=== PATIENT | male | born 1975 | race Caucasian/White ===

== ENCOUNTER 2017-04-07 15:58 | Observation (INO) | payer OTHER ==
[~2017-04-07 15:58] MED LIST: MET5 PO; METH18TA12 PO
[2017-04-07] MEDS ORDERED: [UNRECOGNIZED DRUG - CODE] (16:17)
[2017-04-07] MEDS ORDERED: VALA500T63 PO (16:18)
[2017-04-07] MEDS ORDERED: NS(*) 0.9% 1000 ML BAG 1,000 ML IV ONE (16:26)
[2017-04-07] MEDS ORDERED: fentaNYL CITR 100 MCG/2 ML AMP IVP ONE ×2 (16:30→21:15)
[2017-04-07] MEDS ORDERED: KETOROLAC 30 MG/ML VIAL IVP ONE (16:30)
[2017-04-07] MEDS ORDERED: ONDANSETRON 4 MG/2 ML VIAL IVP ONE (16:30)
--- NOTE | 2017-04-07 16:32 | ER Report ---
History and Physical Time Seen By MD: 16:30 Hx. of Stated Complaint: PAIN IN L SIDE LOW BACK RADIATING TO FRONT HPI/ROS 41-year-old male with left CVA tenderness 24 hours states no history of kidney stones noticed his urine is been darker that he is doing at home has been helping the pain has been nauseated with the pain Allergies: Coded Allergies: morphine (Verified Allergy, Mild, 04/07/17) Home Meds Reported Medications Valacyclovir Hcl (VALACYCLOVIR) 500 Mg Tablet, 500 MG PO 04/07/17 Alemtuzumab (Lemtrada) 12 Mg/1.2 Ml Vial 04/07/17 Discontinued Reported Medications Methylphenidate Hcl (Concerta) 18 Mg/Bottle Tab.osm.24, 18 MG PO, 0 Refills 01/25/11 Methylphenidate Hcl (Ritalin) 5 Mg Tab, 5 MG PO TID, 0 Refills 01/25/11 Past Medical/Surgical History adhd, ms Reviewed Nurses Notes: Yes Old Medical Records Reviewed: Yes Hx Smoking: No Exposure to Second Hand Smoke?: No Hx Substance Use Disorder: No Hx Alcohol Use: No Family History of: HTN Constitutional Vital Sign - Last 24 Hours 04/07/17 04/07/17 04/07/17 04/07/17 16:13 16:28 16:43 16:58 Temp 97.8 Pulse 80 ??? 73 79 Resp 18 B/P (MAP) 122/90 137/85 (102) Pulse Ox 93 96 89 04/07/17 04/07/17 04/07/17 04/07/17 17:07 17:13 17:28 17:30 Pulse ??? 80 B/P (MAP) 133/86 (102) 131/82 (98) Pulse Ox 92 95 04/07/17 04/07/17 04/07/17 04/07/17 17:43 17:48 18:00 18:03 Pulse 78 83 77 B/P (MAP) ???/??? (4605) Pulse Ox 94 95 93 04/07/17 04/07/17 04/07/17 04/07/17 18:18 18:30 18:33 18:48 Pulse 83 84 86 B/P (MAP) ???/??? (6825) Pulse Ox 92 93 93 04/07/17 04/07/17 04/07/1719/18 19:00 19:03 19:17 19:18 Pulse 81 71 B/P (MAP) ???/??? (0485) 126/84 (98) Pulse Ox 92 95 04/07/17 19:19 B/P (MAP) 130/80 (97) Physical Exam 41-year-old male alert and oriented moderate distress HEENT has normocephalic/ atraumatic tympanic membranes are reddened throat is non-reddened neck is supple and JVD heart rate is regular no murmurs or gallops lungs clear to auscultation abdomen is soft he does have left CVA tenderness to palpation rates the pain as 7 on a 0-10 no peripheral edema moves all extremities Medical Decision Making Data Points Result Diagram: 04/07/17 1647 04/07/17 1647 Laboratory Hematology Test 04/07/17 16:47 04/07/17 18:00 04/07/17 20:09 Red Blood Count 5.88 M/uL (4.00-5.60) Mean Corpuscular Volume 87.8 fL (80.0-96.0) Mean Corpuscular Hemoglobin 30.2 pg (26.0-33.0) Mean Corpuscular Hemoglobin Concent 34.4 g/dL (32.0-36.0) Red Cell Distribution Width 13.9 % (11.5-14.5) Mean Platelet Volume 7.4 fL (7.2-11.1) Neutrophils (%) (Auto) 93.5 % (39.4-72.5) Lymphocytes (%) (Auto) 1.9 % (17.6-49.6) Monocytes (%) (Auto) 4.4 % (4.1-12.4) Eosinophils (%) (Auto) 0.1 % (0.4-6.7) Basophils (%) (Auto) 0.1 % (0.3-1.4) Nucleated RBC Relative Count (auto) 0.3 /100WBC Neutrophils # (Auto) 16.3 K/uL (2.0-7.4) Lymphocytes # (Auto) 0.3 K/uL (1.3-3.6) Monocytes # (Auto) 0.8 K/uL (0.3-1.0) Eosinophils # (Auto) 0.0 K/uL (0.0-0.5) Basophils # (Auto) 0.0 K/uL (0.0-0.1) Nucleated RBC Absolute Count (auto) 0.05 K/uL Sodium Level 138 mmol/L (137-145) Potassium Level 3.9 mmol/L (3.5-5.0) Chloride Level 102 mmol/L (98-107) Carbon Dioxide Level 24 mmol/L (22-30) Blood Urea Nitrogen 10 mg/dl (9-21) Creatinine 0.90 mg/dl (0.66-1.25) Glomerular Filtration Rate Calc > 60.0 Random Glucose 120 mg/dl (75-110) Lactate 2.4 mmol/L (0.7-2.1) Calcium Level 9.5 mg/dl (8.4-10.2) Total Bilirubin 1.0 mg/dl (0.2-1.3) Aspartate Amino Transf (AST/SGOT) 27 U/L (0-35) Alanine Aminotransferase (ALT/SGPT) 52 U/L (0-56) Alkaline Phosphatase 75 U/L (0-126) Total Protein 7.4 gm/dl (6.3-8.2) Albumin 4.5 g/dl (3.5-5.0) Amylase Level 94 U/L (0-110) Lipase 45 U/L (23-300) Urine Color Yellow Urine Clarity Clear Urine pH 5.0 pH (4.8-9.5) Urine Specific Ramah 1.016 Urine Protein Negative mg/dL (NEGATIVE) Urine Glucose (UA) Negative mg/dL (NEGATIVE) Urine Ketones Trace mg/dL (NEGATIVE) Urine Blood Negative (NEGATIVE) Urine Nitrite Negative (NEGATIVE) Urine Bilirubin Negative (NEGATIVE) Urine Urobilinogen Negative mg/dL (0.2-1.9) Urine Leukocyte Esterase Negative (NEGATIVE) Urine RBC <1 /HPF (0-2/HPF) Urine WBC 1 /HPF (0-5/HPF) Urine Squamous Epithelial Cells None /LPF (</=FEW) Urine Bacteria Negative /HPF (NONE-FEW) Urine Mucus Few /HPF (NONE-FEW) Troponin I < 0.012 ng/ml Chemistry Test 04/07/17 16:47 04/07/17 18:00 04/07/17 20:09 White Blood Count 17.4 k/uL (4.5-11.0) Red Blood Count 5.88 M/uL (4.00-5.60) Hemoglobin 17.7 g/dL (14.0-18.0) Hematocrit 51.7 % (42.0-52.0) Mean Corpuscular Volume 87.8 fL (80.0-96.0) Mean Corpuscular Hemoglobin 30.2 pg (26.0-33.0) Mean Corpuscular Hemoglobin Concent 34.4 g/dL (32.0-36.0) Red Cell Distribution Width 13.9 % (11.5-14.5) Platelet Count 434 K/uL (150-450) Mean Platelet Volume 7.4 fL (7.2-11.1) Neutrophils (%) (Auto) 93.5 % (39.4-72.5) Lymphocytes (%) (Auto) 1.9 % (17.6-49.6) Monocytes (%) (Auto) 4.4 % (4.1-12.4) Eosinophils (%) (Auto) 0.1 % (0.4-6.7) Basophils (%) (Auto) 0.1 % (0.3-1.4) Nucleated RBC Relative Count (auto) 0.3 /100WBC Neutrophils # (Auto) 16.3 K/uL (2.0-7.4) Lymphocytes # (Auto) 0.3 K/uL (1.3-3.6) Monocytes # (Auto) 0.8 K/uL (0.3-1.0) Eosinophils # (Auto) 0.0 K/uL (0.0-0.5) Basophils # (Auto) 0.0 K/uL (0.0-0.1) Nucleated RBC Absolute Count (auto) 0.05 K/uL Glomerular Filtration Rate Calc > 60.0 Lactate 2.4 mmol/L (0.7-2.1) Calcium Level 9.5 mg/dl (8.4-10.2) Total Bilirubin 1.0 mg/dl (0.2-1.3) Aspartate Amino Transf (AST/SGOT) 27 U/L (0-35) Alanine Aminotransferase (ALT/SGPT) 52 U/L (0-56) Alkaline Phosphatase 75 U/L (0-126) Total Protein 7.4 gm/dl (6.3-8.2) Albumin 4.5 g/dl (3.5-5.0) Amylase Level 94 U/L (0-110) Lipase 45 U/L (23-300) Urine Color Yellow Urine Clarity Clear Urine pH 5.0 pH (4.8-9.5) Urine Specific Ramah 1.016 Urine Protein Negative mg/dL (NEGATIVE) Urine Glucose (UA) Negative mg/dL (NEGATIVE) Urine Ketones Trace mg/dL (NEGATIVE) Urine Blood Negative (NEGATIVE) Urine Nitrite Negative (NEGATIVE) Urine Bilirubin Negative (NEGATIVE) Urine Urobilinogen Negative mg/dL (0.2-1.9) Urine Leukocyte Esterase Negative (NEGATIVE) Urine RBC <1 /HPF (0-2/HPF) Urine WBC 1 /HPF (0-5/HPF) Urine Squamous Epithelial Cells None /LPF (</=FEW) Urine Bacteria Negative /HPF (NONE-FEW) Urine Mucus Few /HPF (NONE-FEW) Troponin I < 0.012 ng/ml Urinalysis Test 04/07/17 18:00 Urine Color Yellow Urine Clarity Clear Urine pH 5.0 pH (4.8-9.5) Urine Specific Ramah 1.016 Urine Protein Negative mg/dL (NEGATIVE) Urine Glucose (UA) Negative mg/dL (NEGATIVE) Urine Ketones Trace mg/dL (NEGATIVE) Urine Blood Negative (NEGATIVE) Urine Nitrite Negative (NEGATIVE) Urine Bilirubin Negative (NEGATIVE) Urine Urobilinogen Negative mg/dL (0.2-1.9) Urine Leukocyte Esterase Negative (NEGATIVE) Urine RBC <1 /HPF (0-2/HPF) Urine WBC 1 /HPF (0-5/HPF) Urine Squamous Epithelial Cells None /LPF (</=FEW) Urine Bacteria Negative /HPF (NONE-FEW) Urine Mucus Few /HPF (NONE-FEW) EKG/Imaging EKG Interpretation EKG at 2033 poor baseline EKG is normal sinus ventricular rate 86 QTCs for 37 Monitor Interpretation: Normal Sinus Rhythm Imaging FACILITY: [facility] [place] PATIENT NAME: Carlos Benitez : 1975 MR: [id number] V: [id number] EXAM DATE: ORDERING PHYSICIAN: SOPHIE HUNT TECHNOLOGIST: Location: [facility] Patient: Carlos Benitez : 1975 Visit/Account:[id number] Date of Sevice: 04/07/2017 CT abdomen with IV contrast Indication: Adrenal gland changes. Comparison: Noncontrast CT scan of the abdomen and pelvis done earlier in the day.. Technique: Axial CT images were obtained through the abdomen and pelvis during injection of nonionic iodinated intravenous contrast. Reformatted coronal and sagittal images were also obtained. One of the following dose optimization techniques was utilized in the performance of this exam: Automated exposure control; adjustment of the mA and/ or kV according to the patient's size; or use of an iterative reconstruction technique. Specific details can be referenced in the facility's radiology CT exam operational policy. Contrast: 75 ml of Isovue-370 IV contrast. Findings: Lower lung vasquez: Limited views lower lung field are unremarkable. Liver: No focal parenchymal abnormality of the liver. Biliary: Gallbladder appears unremarkable as well as the intra and extra hepatic biliary system. Pancreas: Normal appearance. Spleen: Normal appearance. Adrenal glands: Left adrenal gland again is mildly thickened with mild surrounding inflammatory changes. There is no discrete adrenal gland mass. Or fluid collection. No acute blood proximal identified. There is mild enhancement of the lesions, medial greater than lateral. The appearance is not significantly changed from the previous exam. The right adrenal gland is normal. Kidneys / retroperitoneum: No evidence of nephrolithiasis or hydronephrosis . No focal abnormality. Bowel / peritoneum / mesenteries: Visualized gastrointestinal tract is within normal limits. No free air, free fluid, fluid collections or areas of inflammation. Lymph node assessment: No pathologic adenopathy identified. Vessels: No significant atherosclerotic calcifications seen throughout a nonaneurysmal abdominal aorta and branches. Musculoskeletal / Body wall: No acute or aggressive osseous abnormality. IMPRESSION: 1. Stable appearance to the left adrenal gland with mild hyperemic changes and surrounding inflammatory changes. This most likely due to an acute/subacute insult. No acute hemorrhage or blood products is identified. No adrenal gland mass. Report Dictated By: Jean Paul Montoya at 04/07/2017 8:28 PM Report E-Signed By: Jean Paul Montoya at 04/07/2017 8:36 PM WSN:[id number] ED Course/Re-evaluation Clinical Indication for ER IV: Hydration ED Course Have discussed the patient with Dr. Alvarado surgeon he M asked for additional imaging to be done at did contact radiologist on-call he asked for a CT abdomen with IV contrast it will be done at this point Re-evaluation Has had fentanyl twice in the emergency room for flank pain [place] did talk to Dr. Alvarado on the 2nd CT he asked for the hospitalist to be involved in to admit the patient talk to Noah Palomino and he agrees to admit this patient from 2nd CT is showing mild hyperemic changes and surrounding inflammatory changes most likely due to an acute or subacute insult I'm I did talk to patient M no that we have a lot of pending lab work expect to have IV fluids and pain medication overnight and have lab work repeated in the morning Decision to Disposition Date: Apr 07, 2017 Decision to Disposition Time: 21:25 Depart Departure Latest Vital Signs Vital Signs Date Time Temp Pulse Resp B/P (MAP) Pulse Ox O2 Delivery O2 Flow Rate FiO2 04/07/17 19:19 130/80 (97) 04/07/17 19:18 71 95 04/07/17 16:13 97.8 18 Impression: Primary Impression: Adrenal infarction Additional Impression: Leucocytosis Condition: Improved Disposition: Admitted from ER Referrals: DIONTE DIXON MD (PCP) Problem Qualifiers SOPHIE HUNT Apr 07, 2017 16:32
[2017-04-07 16:55] LABS: PLATELET COUNT, AUTOMATED 434 K/uL (150-450)
--- NOTE | 2017-04-07 18:14 | RADIOLOGY IMAGING REPORT ---
FACILITY: [facility] - [place] PATIENT NAME: Carlos Benitez : 1975 MR: [id number] V: [id number] EXAM DATE: ORDERING PHYSICIAN: SOPHIE HUNT TECHNOLOGIST: Location: [facility] Patient: Carlos Benitez : 1975 Visit/Account:[id number] Date of Sevice: 04/07/2017 ADDENDUM #1 The left adrenal gland was discussed with the hospitalist in [place] on 04/09/2017 at approximately 2: 45 PM. While the cause of the stranding around the left adrenal is not definitive, the findings most likely represent hemorrhage. Blunt trauma would be the most common differential consideration. Other potential causes would be hemorrhage after infarct, unilateral neoplastic lesion (though no mass is c onspicuous), long-term nonsteroidal anti-inflammatory use, neurofibromatosis type I, or idiopathic. F ollow-up CT in one to 2 weeks was recommended to confirm resolution and to reevaluate. Report Dictated By: Angie Lazaro MD at 04/09/2017 2:45 PM Report E-Signed By: Angie Lazaro MD at 04/09/2017 2:49 PM ORIGINAL REPORT COMPUTED TOMOGRAPHY OF THE Abdomen and Pelvis without CONTRAST INDICATION: Flank pain. TECHNIQUE: Contiguous axial 3.[address] images were obtained through the abdomen and pelvis without co ntrast. Coronal and sagittal reformatted images were submitted. COMPARISON: None. FINDINGS: Lung bases: Trace atelectasis. Liver and hepatic vasculature: Limited parenchymal evaluation without contrast. Gallbladder and bile ducts: Normal. Spleen: Normal. Pancreas: Normal pancreas. Adrenals: The right adrenal is normal. There is moderate stranding circumscribing the left adrenal. No discrete fluid collection. Kidneys, ureters and bladder: Normal. Retroperitoneum and aorta: Normal caliber aorta. Small retroperitoneal lymph nodes. GI tract, mesentery and peritoneum: No bowel obstruction. No free fluid or free air. There is an appe ndicolith, but the appendix is nondilated. There are a few colonic diverticula but no findings of div erticulitis. Prostate: Unremarkable. Bones and soft tissues: No acute osseous abnormality. IMPRESSION: Stranding surrounding the left adrenal gland could potentially reflect adrenal hemorrhage. There is n o apparent mass or discrete fluid collection. Diverticulosis without findings of diverticulitis. There is an appendicolith, but the appendix is gas-filled and nondistended. One of the following dose optimization techniques was utilized in the performance of this exam: Autom ated exposure control; adjustment of the mA and/or kV according to the patient's size; or use of an i terative reconstruction technique. Specific details can be referenced in the facility's radiology C T exam operational policy. Report Dictated By: Angie Lazaro MD at 04/07/2017 5:37 PM Report E-Signed By: Angie Lazaro MD at 04/07/2017 6:10 PM WSN:[id number]
[2017-04-07] MEDS ORDERED: NS 0.9% 50 ML VIAL 50 ML ONE (19:57)
[2017-04-07] MEDS ORDERED: IOPAMIDOL 76% 75 ML INFUS BTL 75 ML ONE (19:57)
--- NOTE | 2017-04-07 20:40 | EKG ---
FACILITY: [facility] [place] PATIENT NAME: DANIELLA LOVELACE : [id number] MR: [id number] V: [id number] EXAM DATE: ORDERING PHYSICIAN: SOPHIE HUNT TECHNOLOGIST: Test Reason : Blood Pressure : / mmHG Vent. Rate : 086 BPM Atrial Rate : 086 BPM P-R Int : 114 ms QRS Dur : 078 ms QT Int : 366 ms P-R-T Axes : 038 040 041 degrees QTc Int : 437 ms Sinus rhythm No acute appearing findings Baseline artifact No previous ECGs available Confirmed by KIMBERLY ERIC ([id number]) on 04/08/2017 6:01:58 AM Referred By: Confirmed By:KIMBERLY ERIC
--- NOTE | 2017-04-07 20:40 | RADIOLOGY IMAGING REPORT ---
FACILITY: [facility] [place] PATIENT NAME: Carlos Benitez : 1975 MR: [id number] V: [id number] EXAM DATE: ORDERING PHYSICIAN: SOPHIE HUNT TECHNOLOGIST: Location: [facility] Patient: Carlos Benitez : 1975 Visit/Account:[id number] Date of Sevice: 04/07/2017 CT abdomen with IV contrast Indication: Adrenal gland changes. Comparison: Noncontrast CT scan of the abdomen and pelvis done earlier in the day.. Technique: Axial CT images were obtained through the abdomen and pelvis during injection of nonioni c iodinated intravenous contrast. Reformatted coronal and sagittal images were also obtained. One of the following dose optimization techniques was utilized in the performance of this exam: Autom ated exposure control; adjustment of the mA and/or kV according to the patient's size; or use of an i terative reconstruction technique. Specific details can be referenced in the facility's radiology C T exam operational policy. Contrast: 75 ml of Isovue-370 IV contrast. Findings: Lower lung vasquez: Limited views lower lung field are unremarkable. Liver: No focal parenchymal abnormality of the liver. Biliary: Gallbladder appears unremarkable as well as the intra and extra hepatic biliary system. Pancreas: Normal appearance. Spleen: Normal appearance. Adrenal glands: Left adrenal gland again is mildly thickened with mild surrounding inflammatory leon es. There is no discrete adrenal gland mass. Or fluid collection. No acute blood proximal identified. There is mild enhancement of the lesions, medial greater than lateral. The appearance is not signifi cantly changed from the previous exam. The right adrenal gland is normal. Kidneys / retroperitoneum: No evidence of nephrolithiasis or hydronephrosis . No focal abnormality. Bowel / peritoneum / mesenteries: Visualized gastrointestinal tract is within normal limits. No free air, free fluid, fluid collections or areas of inflammation. Lymph node assessment: No pathologic adenopathy identified. Vessels: No significant atherosclerotic calcifications seen throughout a nonaneurysmal abdominal aort a and branches. Musculoskeletal / Body wall: No acute or aggressive osseous abnormality. IMPRESSION: 1. Stable appearance to the left adrenal gland with mild hyperemic changes and surrounding inflammato ry changes. This most likely due to an acute/subacute insult. No acute hemorrhage or blood products i s identified. No adrenal gland mass. Report Dictated By: Jean Paul Montoya at 04/07/2017 8:28 PM Report E-Signed By: Jean Paul Montoya at 04/07/2017 8:36 PM WSN:[id number]
[2017-04-07 22:32] VITALS: BP 140/90
[2017-04-07] MEDS ORDERED: BACL-1 PO (22:44)
[2017-04-07] MEDS ORDERED: IBUP-56 PO (22:46)
--- NOTE | 2017-04-07 23:11 | History & Physical ---
History of Present Illness Chief Complaint Left flank pain History of Present Illness 41yo male with PMHx significant for MS on Lemtrada therapy. He reports onset of left flank pain yesterday evening at approximately 2100hrs. He denies any fevers or chills. No rashes. He did have some nausea with emesis "because it hurt so bad". He denies any urinary symptoms. No diarrhea. No black or bloody stools. He denies any history of bleeding or clotting problems. He denies any palpitations/CP/SOB. He was evaluated in the ER and found to have an apparent infarct of his left adrenal gland. He also has an elevated WBC count with lymphopenia. He was recommended for admission. History Problems: (1) Multiple sclerosis Status: Chronic (2) Thyroglossal duct cyst Home Meds Reported Medications Ibuprofen (IBUPROFEN) 200 Mg Tablet, 3 TAB PO Q6H, TAB 04/07/17 Baclofen (BACLOFEN) 10 Mg Tablet, 10 MG PO TID, #30 TAB 04/07/17 Valacyclovir Hcl (VALACYCLOVIR) 500 Mg Tablet, 500 MG PO 04/07/17 Alemtuzumab (Lemtrada) 12 Mg/1.2 Ml Vial 04/07/17 Discontinued Reported Medications Methylphenidate Hcl (Concerta) 18 Mg/Bottle Tab.osm.24, 18 MG PO, 0 Refills 01/25/11 Methylphenidate Hcl (Ritalin) 5 Mg Tab, 5 MG PO TID, 0 Refills 01/25/11 Allergies: Coded Allergies: morphine (Verified Allergy, Mild, 04/07/17) Patient History: Atrial fibrillation MOTHER Other Social/Family Hx . 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 Hx Smoking: No Exposure to Second Hand Smoke?: No Hx Alcohol Use: No Social Drug Use: Currently Social Drugs: Marijuana Review of Systems Constitutional: No Fever, No Chills, No Night Sweats Neurological: No Syncope, No Confusion, No Weakness Eyes: No Vision Change ENT: No Hearing Loss Cardiovascular: No Chest Pain, No Palpitations, No Orthostatic Hypotension Respiratory: No Shortness of Breath, No Cough, No Wheezing Gastrointestinal: Nausea, Vomiting, No Diarrhea, No Hematemesis, No Hematochezia, No Melena, Abdominal Pain Genitourinary: No Dysuria, No Hematuria Musculoskeletal: Pain Psychiatric: No Depression, No Anxiety Exam Vital Signs Vital Signs Date Time Temp Pulse Resp B/P (MAP) Pulse Ox O2 Delivery O2 Flow Rate FiO2 04/07/17 22:39 97 04/07/17 22:32 99.0 77 16 140/90 (107) Room Air General Appearance: Alert, Awake Eyes: PERRLA ENT: Oropharynx Clear Neck: No Masses Cardiovascular: Regular Rate and Rhythm Respiratory: Clear to Auscultation Chest: No Tenderness GI: Other (Soft/tenderness elicited with palaption of LUQ/left flank/no guarding or rebound/BS present) Lymph: No Adenopathy Extremities: Warm, Perfused Integumentary: Skin Intact without Lesion / Mass (no rashes noted) Psych: Alert & Oriented X3 Medical Decision Making Data Points Result Diagram: 04/07/17 1647 04/07/17 1647 Item Value Date Time Lactate 2.4 mmol/L H 04/07/17 1647 Troponin I < 0.012 ng/ml 04/07/172008 Lipase 45 U/L 04/07/17 1647 Albumin 4.5 g/dl 04/07/17 1647 Amylase Level 94 U/L 04/07/17 1647 Total Protein 7.4 gm/dl 04/07/17 1647 Alkaline Phosphatase 75 U/L 04/07/17 1647 Alanine Aminotransferase (ALT/SGPT) 52 U/L 04/07/17 1647 Aspartate Amino Transf (AST/SGOT) 27 U/L 04/07/17 1647 Total Bilirubin 1.0 mg/dl 04/07/17 1647 Calcium Level 9.5 mg/dl 04/07/17 1647 Random Glucose 120 mg/dl H 04/07/17 1647 Glomerular Filtration Rate Calc > 60.0 04/07/17 1647 Creatinine 0.90 mg/dl 04/07/17 1647 Blood Urea Nitrogen 10 mg/dl 04/07/17 1647 Carbon Dioxide Level 24 mmol/L 04/07/17 1647 Chloride Level 102 mmol/L 04/07/17 1647 Potassium Level 3.9 mmol/L 04/07/17 1647 Sodium Level 138 mmol/L 04/07/17 1647 Urine Mucus Few /HPF 04/07/17 1800 Urine Bacteria Negative /HPF 04/07/17 1800 Urine Squamous Epithelial Cells None /LPF 04/07/17 1800 Urine WBC 1 /HPF 1/19/18 1800 Urine RBC <1 /HPF 04/07/17 1800 Urine Leukocyte Esterase Negative 04/07/17 1800 Urine Urobilinogen Negative mg/dL 04/07/17 1800 Urine Bilirubin Negative 04/07/17 1800 Urine Nitrite Negative 04/07/17 1800 Urine Blood Negative 04/07/17 1800 Urine Ketones Trace mg/dL 04/07/17 1800 Urine Glucose (UA) Negative mg/dL 04/07/17 1800 Urine Protein Negative mg/dL 04/07/17 1800 Urine Specific [place] 1.016 04/07/17 1800 Urine pH 5.0 pH 04/07/17 1800 Urine Clarity Clear 04/07/17 1800 Urine Color Yellow 04/07/17 1800 EKG / Imaging EKG Interpretation EKG - sinus rhythm with no acute appearing changes Imaging PATIENT NAME: Carlos Benitez : 1975 MR: [id number] V: [id number] EXAM DATE: ORDERING PHYSICIAN: SOPHIE HUNT TECHNOLOGIST: Location: [facility] Patient: Carlos Benitez : 1975 Visit/Account:[id number] Date of Sevice: 04/07/2017 CT abdomen with IV contrast Indication: Adrenal gland changes. Comparison: Noncontrast CT scan of the abdomen and pelvis done earlier in the day.. Technique: Axial CT images were obtained through the abdomen and pelvis during injection of nonionic iodinated intravenous contrast. Reformatted coronal and sagittal images were also obtained. One of the following dose optimization techniques was utilized in the performance of this exam: Automated exposure control; adjustment of the mA and/ or kV according to the patient's size; or use of an iterative reconstruction technique. Specific details can be referenced in the facility's radiology CT exam operational policy. Contrast: 75 ml of Isovue-370 IV contrast. Findings: Lower lung vasquez: Limited views lower lung field are unremarkable. Liver: No focal parenchymal abnormality of the liver. Biliary: Gallbladder appears unremarkable as well as the intra and extra hepatic biliary system. Pancreas: Normal appearance. Spleen: Normal appearance. Adrenal glands: Left adrenal gland again is mildly thickened with mild surrounding inflammatory changes. There is no discrete adrenal gland mass. Or fluid collection. No acute blood proximal identified. There is mild enhancement of the lesions, medial greater than lateral. The appearance is not significantly changed from the previous exam. The right adrenal gland is normal. Kidneys / retroperitoneum: No evidence of nephrolithiasis or hydronephrosis . No focal abnormality. Bowel / peritoneum / mesenteries: Visualized gastrointestinal tract is within normal limits. No free air, free fluid, fluid collections or areas of inflammation. Lymph node assessment: No pathologic adenopathy identified. Vessels: No significant atherosclerotic calcifications seen throughout a nonaneurysmal abdominal aorta and branches. Musculoskeletal / Body wall: No acute or aggressive osseous abnormality. IMPRESSION: 1. Stable appearance to the left adrenal gland with mild hyperemic changes and surrounding inflammatory changes. This most likely due to an acute/subacute insult. No acute hemorrhage or blood products is identified. No adrenal gland mass. Report Dictated By: Jean Paul Montoya at 04/07/2017 8:28 PM Report E-Signed By: Jean Paul Montoya at 04/07/2017 8:36 PM [id number] Assessment and Plan Problems: (1) Adrenal infarction Status: Acute Assessment & Plan: It appears he has an acute isolated infarction of his left adrenal gland. No obvious etiology. Will check hypercoagulable studies, monitor for any dysrhythmias such as a-fib, check echocardiogram. May need to have hematology see him as well. Question if potentially related to the Lemtrada for his MS. (2) Multiple sclerosis Status: Chronic Assessment & Plan: He appears to be doing fairly well. He is on Lemtrada. His CBC does show an elevated WBC count with neutrophil predominance and lymphopenia (which is common with the Lemtrada). He is on the Valtrex prophylaxis. He also uses Baclofen for some spasticity. Venous Thromboembolism Antithrombotics Is Pt On Any Antithrombotics?: No Prophylaxis Tx Contraindicated Pharmacological Contraindicati: Pt at Low Risk for VTE Exam Sepsis Risk: No Definite Risk KIMBERLY ERIC MD Apr 07, 2017 23:11
[2017-04-07] MEDS: ACETAMINOPHEN 325 MG TAB PO PRN (23:52)
[2017-04-07] MEDS: fentaNYL CITR 100 MCG/2 ML AMP IVP PRN (23:53)
[2017-04-08 02:03] VITALS: BP 127/92
[2017-04-08] MEDS: NS(*) 0.9% 1000 ML BAG 1,000 ML IV PRN ×2 (02:11→19:24)
[2017-04-08] MEDS: fentaNYL CITR 100 MCG/2 ML AMP IVP PRN ×8 (02:14→21:15)
[2017-04-08] MEDS: ACETAMINOPHEN 325 MG TAB PO PRN ×2 (05:20→22:40)
[2017-04-08 06:12] LABS: PLATELET COUNT, AUTOMATED 320 K/uL (150-450)
[2017-04-08 06:55] VITALS: BP 131/84
[2017-04-08] MEDS: valACYclovir HCL 500 MG TAB PO SCH (09:21)
[2017-04-08] MEDS: BACLOFEN 10 MG TAB PO SCH ×3 (09:21→21:14)
--- NOTE | 2017-04-08 12:28 | Hospitalist Progress Note ---
Subjective Progress Notes Subjective The patient continues to have L abdominal and flank pain. He states it is not much improved. Physical Exam Vital Signs Date Time Temp Pulse Resp B/P (MAP) Pulse Ox O2 Delivery O2 Flow Rate FiO2 04/08/17 09:39 98.8 04/08/17 06:55 82 16 131/84 (100) 94 Room Air General Appearance: Alert, Awake, No Acute Distress Neuro: No Gross deficits Eyes: PERRLA Cardiovascular: Regular Rate and Rhythm Respiratory: Clear to Auscultation GI: Other (Tender to palpation L midabdomen. Tender posteriorly with palpation of flank as well.) Extremities: Warm, Perfused, Other (No edema.) Integumentary: Skin Intact without Lesion / Mass Psych: Alert & Oriented X3, Appropriate Mood & Affect Result Diagram: 04/08/1755104/08/17551 Monitor Interpretation: Normal Sinus Rhythm Assessment and Plan Problems: (1) Adrenal infarction Status: Acute Assessment & Plan: It appears he has an acute isolated infarction of his left adrenal gland. No obvious etiology. Will check hypercoagulable studies, monitor for any dysrhythmias such as a-fib, check echocardiogram. May need to have hematology see him as well. Question if potentially related to the Lemtrada for his MS although it is not listed in potential adverse reactions. (2) Multiple sclerosis Status: Chronic Assessment & Plan: He appears to be doing fairly well. He is on Lemtrada. His CBC does show an elevated WBC count with neutrophil predominance and lymphopenia (which is common with the Lemtrada). He is on the Valtrex prophylaxis. He also uses Baclofen for some spasticity. Time Spent on Plan of Care: < 30 min Exam Sepsis Risk: No Definite Risk MILI ERIC MD Apr 08, 2017 12:28
[2017-04-08 13:48] VITALS: BP 129/89
[2017-04-08 15:15] VITALS: BP 138/90
[2017-04-08 18:53] VITALS: BP 132/86
[2017-04-08] MEDS: DOCUSATE SODIUM 100 MG CAP PO SCH (21:15)
[2017-04-09] VITALS (7 sets, daily range): BP systolic 124–139; BP diastolic 77–95
[2017-04-09] MEDS: fentaNYL CITR 100 MCG/2 ML AMP IVP PRN ×4 (00:53→08:02)
[2017-04-09] MEDS: ACETAMINOPHEN 325 MG TAB PO PRN ×3 (05:24→23:34)
[2017-04-09 05:55] LABS: PLATELET COUNT, AUTOMATED 323 K/uL (150-450)
[2017-04-09] MEDS ORDERED: oxyCODONE HCL 5 MG CAP PO PRN (09:25)
[2017-04-09] MEDS ORDERED: fentaNYL CITR 100 MCG/2 ML AMP IVP PRN (09:25)
[2017-04-09] MEDS: DOCUSATE SODIUM 100 MG CAP PO SCH ×2 (09:51→21:28)
[2017-04-09] MEDS: TAMSULOSIN HCL 0.4 MG CAP PO SCH (09:51)
[2017-04-09] MEDS: BACLOFEN 10 MG TAB PO SCH ×3 (09:51→21:28)
[2017-04-09] MEDS: valACYclovir HCL 500 MG TAB PO SCH (09:58)
--- NOTE | 2017-04-09 14:25 | Hospitalist Progress Note ---
Subjective Progress Notes Subjective He still is having the left flank pain. Physical Exam Vital Signs Date Time Temp Pulse Resp B/P (MAP) Pulse Ox O2 Delivery O2 Flow Rate FiO2 04/09/17 11:44 98.7 99 16 126/85 (99) 95 Room Air Intake and Output 04/10/17 07:00 Intake Total 460 ml Balance 460 ml Intake Oral 460 ml # Voids 1 General Appearance: Alert, Awake, No Acute Distress : No CVA Tenderness Result Diagram: 04/09/1751604/09/17516 Monitor Interpretation: Normal Sinus Rhythm Assessment and Plan Problems: (1) Adrenal infarction Status: Acute Assessment & Plan: It appears he has an acute insult to the left adrenal gland. No obvious etiology. Hypercoagulable studies pending, On telemetry to evaluate for atrial fibrillation (NSR so far), and check an echocardiogram. May need to have hematology see him as well. Question if potentially related to the Lemtrada for his MS although it is not listed in potential adverse reactions. I spoke with Dr. Camp (Endocrinology), who didn't recommend any anticoagulation, but did recommend a stimulation test. Will add oxycodone for pain control. (2) Multiple sclerosis Status: Chronic Assessment & Plan: He appears to be doing fairly well. He is on Lemtrada. His CBC does show an elevated WBC count with neutrophil predominance and lymphopenia (which is common with the Lemtrada). He is on the Valtrex prophylaxis. He also uses Baclofen for some spasticity. Exam Sepsis Risk: No Definite Risk SREEDHAR LUONG MD Apr 09, 2017 14:25
[2017-04-09] MEDS: oxyCODONE HCL 5 MG CAP PO PRN ×3 (14:39→23:34)
[2017-04-09] MEDS ORDERED: COSYNTROPIN 0.25 MG/ML VIAL IVP ONE (16:00)
[2017-04-10 04:19] VITALS: BP 123/75
[2017-04-10] MEDS: oxyCODONE HCL 5 MG CAP PO PRN ×3 (04:21→14:21)
[2017-04-10 05:46] LABS: PLATELET COUNT, AUTOMATED 302 K/uL (150-450)
[2017-04-10] MEDS: DOCUSATE SODIUM 100 MG CAP PO SCH (09:25)
[2017-04-10] MEDS: BACLOFEN 10 MG TAB PO SCH ×2 (09:25→14:14)
[2017-04-10] MEDS: TAMSULOSIN HCL 0.4 MG CAP PO SCH (09:25)
[2017-04-10] MEDS: valACYclovir HCL 500 MG TAB PO SCH (09:26)
[2017-04-10 11:01] VITALS: BP 133/82
--- NOTE | 2017-04-10 12:07 | Hospitalist Progress Note ---
Subjective Progress Notes Subjective He reports lingering pain in left flank and some nausea. No fever. Physical Exam Vital Signs Date Time Temp Pulse Resp B/P (MAP) Pulse Ox O2 Delivery O2 Flow Rate FiO2 04/10/17 11:01 94 04/10/17 11:01 98.4 87 16 133/82 (99) Nasal Cannula 0.5 General Appearance: Alert, Awake Cardiovascular: Regular Rate and Rhythm, No Edema Respiratory: Clear to Auscultation Chest: No Tenderness GI: Other (soft with some tenderness reported LUQ/no guarding or rebound) Extremities: Warm, Perfused Psych: Alert & Oriented X3 Result Diagram: 04/10/17 0528 04/10/17527 Monitor Interpretation: Normal Sinus Rhythm Assessment and Plan Problems: (1) Adrenal infarction Status: Acute Assessment & Plan: It appears he has an acute insult to the left adrenal gland. No obvious etiology. Hypercoagulable studies still pending. On telemetry to evaluate for dysrhythmia (atrial fibrillation) - normal sinus rhythm. Echocardiogram to evaluate for anatomic abnormality is still pending. May need to have hematology see him as well. Question if potentially related to the Lemtrada for his MS although it is not listed in potential adverse reactions. Dr. Baig spoke with Dr. Camp (Endocrinology), who didn't specifically recommend any anticoagulation, but did recommend a stimulation test. He is currently on oxycodone for pain control. (2) Multiple sclerosis Status: Chronic Assessment & Plan: He appears to be doing fairly well. He is on Lemtrada. His CBC did show an elevated WBC count with neutrophil predominance and lymphopenia (which is common with the Lemtrada). His WBC count is now in normal range with persistent lymphopenia. He is on the Valtrex prophylaxis. He also uses Baclofen for some spasticity. Exam Sepsis Risk: No Definite Risk KIMBERLY ERIC MD Apr 10, 2017 12:07
[2017-04-10 13:17] LABS: INR 1.01
--- NOTE | 2017-04-10 14:06 | RADIOLOGY IMAGING REPORT ---
FACILITY: [facility] PATIENT NAME: DANIELLA LOVELACE : [id number] MR: [id number] V: [id number] EXAM DATE: ORDERING PHYSICIAN: KIMBERLY ERIC TECHNOLOGIST: Aileen Oliver EXAMINATION:TWO-DIMENSIONAL ECHOCARDIOGRAPH REASON:ADRENAL INFARCT 2D Measurements (normal values in centimeters) LV endLV endRV endVent.LV PostAorticLeftPercent DiastolicSystolicDiastolicSeptumWallRootAtriumShortening (3.5-5.7)(0.9-2.6)(0.6-1.1)(0.6-1.1)(2.0-3.7)(1.9-4.0)(25-35%) [id number]% STROKE VOLUME: 57 ESTIMATED EJECTION FRACTION:65% PARASTERNAL LONG AXIS: Overall left ventricular systolic function appears to be normal. No wall motion abnormalities are noted. No thrombi are noted but the left atrial appendage is not seen. The chamber sizes all appear to be normal. Color examination of the valves in this view was unremarkable. The aortic valve and mitral valve both appear to open normally. PARASTERNAL SHORT AXIS: Overall left ventricular function appears to be normal. No wall motion abnormalities are noted. The aortic valve is trileaflet in configuration and appears to open normally. Color examination of the valves is unremarkable. APICAL FOUR AND TWO CHAMBER: Normal left ventricular ejection fraction. There is a mild amount of tricuspid insufficiency noted. Tricuspid regurgitation V-max is measured at .072 m/sec. Estimated right atrial pressure is 3 mmHg. Aortic valve area and mitral valve area both measure within normal range at 4.3 and 4.5 cm2 respectively. The left atrial and right atrial volumes are measured within normal ranges. SUBCOSTAL VIEW: No pericardial effusion was noted. No atrial septal or ventricular septal defects were appreciated. Doppler examination of the mitral valve in diastole does reveal the A wave greater than the E wave. OVERALL IMPRESSION: 1. Normal left ventricular ejection fraction of 65% with a grade 1/4 decrease in diastolic function. 2. Normal chamber sizes. 3. Mild amount of tricuspid insufficiency with right ventricular systolic pressure within normal range at 13 mmHg. No other abnormalities were noted. 4. No thrombi were noted in any of the chambers but the left atrial appendage was not seen. Dictated by: Charu Skaggs M.D. on 04/10/2017 at 9:53 Transcribed by: ARTHUR on 04/10/2017 at 14:05 Approved by: Charu Skaggs M.D. on 04/10/2017 at 14:05 [facility]
[2017-04-10] MEDS ORDERED: DOCU-202 PO (14:38)
[2017-04-10] MEDS ORDERED: OXYC5TAB38 PO (14:38)
[2017-04-10] MEDS ORDERED: TAMS0.4C70 PO (14:38)
--- NOTE | 2017-04-10 14:56 | Hospitalist Depart ---
Discharge Summary Reason for Hosp/Final Diag: (1) Adrenal infarction Status: Acute Hospital Course & Plan: Based on the CT scans, it appears he has an acute insult to the left adrenal gland. No obvious etiology. Hypercoagulable studies were drawn and several are still pending. He has been on telemetry to evaluate for dysrhythmia (atrial fibrillation) - he has remained in normal sinus rhythm. Echocardiogram to evaluate for anatomic abnormality is essentially normal. Hematology (Dr. Oliver) did see him as well and will be following up closely with him as an outpatient. There is a question if this was potentially related to the Lemtrada for his MS (although it is not listed in potential adverse reactions). Dr. Baig also spoke with Dr. Camp (Endocrinology), who didn 't specifically recommend any anticoagulation, but did recommend an ACTH stimulation test. His cortisol levels are still pending at the time of discharge as they are a send out lab. He remained very stable throughout his stay, but did require ongoing pain control. He is currently on oxycodone and has tolerated it fairly well. (2) Multiple sclerosis Status: Chronic Hospital Course & Plan: He appears to be doing fairly well. He is on Lemtrada. His CBC did show an elevated WBC count with neutrophil predominance and lymphopenia (which is common with the Lemtrada). His WBC count is now in normal range with persistent lymphopenia. He is on the Valtrex prophylaxis. He also uses Baclofen for some spasticity. Departure Weight (Pounds): 147 Result Diagram: 04/10/1752704/10/17527 Item Value Date Time White Blood Count 17.4 k/uL H 04/07/17 1647 Hemoglobin 17.7 g/dL 04/07/17 1647 Hematocrit 51.7 % 04/07/17 1647 Platelet Count 434 K/uL 04/07/17 1647 Platelet Count 320 K/uL 04/08/17 0552 Hemoglobin 17.9 g/dL 04/08/17 0552 Hematocrit 52.2 % H 04/08/17 0552 White Blood Count 11.9 k/uL H 04/08/17 0552 White Blood Count 9.4 k/uL 04/09/17 0517 Hemoglobin 16.8 g/dL 04/09/17 0517 Hematocrit 49.0 % 04/09/17 0517 Platelet Count 323 K/uL 04/09/17 0517 Prothrombin Time 13.3 seconds 04/10/17 1300 Prothromb Time International Ratio 1.01 04/10/17 1300 Activated Partial Thromboplast Time 31 seconds 04/10/17 1300 Functional Protein C 161 % 04/07/17 2318 Functional Protein S 89 % 04/07/17 2318 Sodium Level 138 mmol/L 04/07/17 1647 Potassium Level 3.9 mmol/L 04/07/17 1647 Chloride Level 102 mmol/L 04/07/17 1647 Carbon Dioxide Level 24 mmol/L 04/07/17 1647 Blood Urea Nitrogen 10 mg/dl 04/07/17 1647 Creatinine 0.90 mg/dl 04/07/17 1647 Glomerular Filtration Rate Calc > 60.0 04/07/17 1647 Random Glucose 120 mg/dl H 04/07/17 1647 Calcium Level 9.5 mg/dl 04/07/17 1647 Total Bilirubin 1.0 mg/dl 04/07/17 1647 Aspartate Amino Transf (AST/SGOT) 27 U/L 04/07/17 1647 Alanine Aminotransferase (ALT/SGPT) 52 U/L 04/07/17 1647 Alkaline Phosphatase 75 U/L 04/07/17 1647 Total Protein 7.4 gm/dl 04/07/17 1647 Albumin 4.5 g/dl 04/07/17 1647 Amylase Level 94 U/L 04/07/17 1647 Lipase 45 U/L 04/07/17 1647 Lactate 2.4 mmol/L H 04/07/17 1647 Plasma Cortisol 29.4 ug/dL 04/07/17 1647 Adrenocorticotropic Hormone 14 pg/mL 04/07/17 1647 Aldosterone 14.7 ng/dL 04/07/17 1647 Homocysteine 10 umol/L 04/07/17 2318 Troponin I < 0.012 ng/ml 04/07/17 2009 Urine Color Yellow 04/07/17 1800 Urine Clarity Clear 04/07/17 1800 Urine pH 5.0 pH 04/07/17 1800 Urine Specific [place] 1.016 04/07/17 1800 Urine Protein Negative mg/dL 04/07/17 1800 Urine Glucose (UA) Negative mg/dL 04/07/17 1800 Urine Ketones Trace mg/dL 04/07/17 1800 Urine Blood Negative 04/07/17 1800 Urine Nitrite Negative 04/07/17 1800 Urine Bilirubin Negative 04/07/17 1800 Urine Urobilinogen Negative mg/dL 04/07/17 1800 Urine Leukocyte Esterase Negative 04/07/17 1800 Urine RBC <1 /HPF 04/07/17 1800 Urine WBC 1 /HPF 04/07/17 1800 Urine Squamous Epithelial Cells None /LPF 04/07/17 1800 Urine Bacteria Negative /HPF 04/07/17 1800 Urine Mucus Few /HPF 04/07/17 1800 Anti-Cardiolipin IgG Antibody 2 GPL 04/07/17 2318 [facility]* [address] [facility] [place] [address] LIYAH CANTU M.D., DIRECTOR OF LABORATORY SERVICES NIKKIE CLARKE M.D., PATHOLOGIST RUN DATE: 04/10/17 Specimen Inquiry Report PAGE 1 RUN TIME: 1000 PATIENT: CARLOS BENITEZ ACCT: [id number] LOC: [facility] U : [id number] AGE/SX: 41/M ROOM: [facility] REG : 04/07/[address]: KIMBELRY ERIC MD : 1975 BED: 269 DIS : STATUS: ADM IN TLOC: SPEC #: [id number] RITA: 04/07/17 STATUS: RES REQ #: [id number] RECD: 04/07/[address]: SOPHIE HUNT APRN SOURCE: BLOOD LINE ENTR: 04/07/[address] [facility] [address]: GRACE HIGH MD [facility]: DIONTE DIXON MD ORDERED: CULT BLOOD Procedure Result Verified BLOOD CULTURE Preliminary 04/10/17-1000 NO GROWTH AFTER 3 DAYS, REINCUBATED [facility] *LIVE* [address] [place] [address] LIYAH CANTU M.D., DIRECTOR OF LABORATORY SERVICES NIKKIE CLARKE M.D., PATHOLOGIST RUN DATE: 04/10/17 Specimen Inquiry Report PAGE 1 RUN TIME: 1000 PATIENT: CARLOS BENITEZ ACCT: [id number] LOC: MED U : [id number] AGE/SX: 41/M ROOM: 2269 REG : 04/07/[address]: KIMBERLY ERIC MD : 1975 BED: 269 DIS : STATUS: ADM IN TLOC: SPEC #: [id number] RITA: 04/07/17 STATUS: RES REQ #: [id number] RECD: 04/07/[address]: SOPHIE HUNT APRN SOURCE: BLOOD PER ENTR: 04/07/[address] [facility] [address]: GRACE HIGH MD [facility]: DIONTE DIXON MD ORDERED: CULT BLOOD Procedure Result Verified BLOOD CULTURE Preliminary 04/10/17-1000 NO GROWTH AFTER 3 DAYS, REINCUBATED Imaging PATIENT NAME: Carlos Benitez : 1975 MR: [id number] V: [id number] EXAM DATE: ORDERING PHYSICIAN: SOPHIE HUNT TECHNOLOGIST: Location: [facility] Patient: Carlos Benitez : 1975 Visit/Account:[id number] Date of Sevice: 04/07/2017 ADDENDUM #1 The left adrenal gland was discussed with the hospitalist in [place] on 2017 at approximately 2:45 PM. While the cause of the stranding around the left adrenal is not definitive, the findings most likely represent hemorrhage. Blunt trauma would be the most common differential consideration. Other potential causes would be hemorrhage after infarct, unilateral neoplastic lesion (though no mass is conspicuous), long-term nonsteroidal anti-inflammatory use, neurofibromatosis type I, or idiopathic. Follow-up CT in one to 2 weeks was recommended to confirm resolution and to reevaluate. Report Dictated By: Angie Lazaro MD at 04/09/2017 2:45 PM Report E-Signed By: Angie Lazaro MD at 04/09/2017 2:49 PM ORIGINAL REPORT COMPUTED TOMOGRAPHY OF THE Abdomen and Pelvis without CONTRAST INDICATION: Flank pain. TECHNIQUE: Contiguous axial 3.[address] images were obtained through the abdomen and pelvis without contrast. Coronal and sagittal reformatted images were submitted. COMPARISON: None. FINDINGS: Lung bases: Trace atelectasis. Liver and hepatic vasculature: Limited parenchymal evaluation without contrast. Gallbladder and bile ducts: Normal. Spleen: Normal. Pancreas: Normal pancreas. Adrenals: The right adrenal is normal. There is moderate stranding circumscribing the left adrenal. No discrete fluid collection. Kidneys, ureters and bladder: Normal. Retroperitoneum and aorta: Normal caliber aorta. Small retroperitoneal lymph nodes. GI tract, mesentery and peritoneum: No bowel obstruction. No free fluid or free air. There is an appendicolith, but the appendix is nondilated. There are a few colonic diverticula but no findings of diverticulitis. Prostate: Unremarkable. Bones and soft tissues: No acute osseous abnormality. IMPRESSION: Stranding surrounding the left adrenal gland could potentially reflect adrenal hemorrhage. There is no apparent mass or discrete fluid collection. Diverticulosis without findings of diverticulitis. There is an appendicolith, but the appendix is gas-filled and nondistended. One of the following dose optimization techniques was utilized in the performance of this exam: Automated exposure control; adjustment of the mA and/ or kV according to the patient's size; or use of an iterative reconstruction technique. Specific details can be referenced in the facility's radiology CT exam operational policy. Report Dictated By: Angie Lazaro MD at 04/07/2017 5:37 PM Report E-Signed By: Angie Lazaro MD at 04/07/2017 6:10 PM WSN:[id number] PATIENT NAME: Carlos Benitez : 1975 MR: [id number] V: [id number] EXAM DATE: ORDERING PHYSICIAN: SOPHIE HUNT TECHNOLOGIST: Location: [facility] Patient: Carlos Benitez : 1975 Visit/Account:[id number] Date of Sevice: 04/07/2017 CT abdomen with IV contrast Indication: Adrenal gland changes. Comparison: Noncontrast CT scan of the abdomen and pelvis done earlier in the day.. Technique: Axial CT images were obtained through the abdomen and pelvis during injection of nonionic iodinated intravenous contrast. Reformatted coronal and sagittal images were also obtained. One of the following dose optimization techniques was utilized in the performance of this exam: Automated exposure control; adjustment of the mA and/ or kV according to the patient's size; or use of an iterative reconstruction technique. Specific details can be referenced in the facility's radiology CT exam operational policy. Contrast: 75 ml of Isovue-370 IV contrast. Findings: Lower lung vasquez: Limited views lower lung field are unremarkable. Liver: No focal parenchymal abnormality of the liver. Biliary: Gallbladder appears unremarkable as well as the intra and extra hepatic biliary system. Pancreas: Normal appearance. Spleen: Normal appearance. Adrenal glands: Left adrenal gland again is mildly thickened with mild surrounding inflammatory changes. There is no discrete adrenal gland mass. Or fluid collection. No acute blood proximal identified. There is mild enhancement of the lesions, medial greater than lateral. The appearance is not significantly changed from the previous exam. The right adrenal gland is normal. Kidneys / retroperitoneum: No evidence of nephrolithiasis or hydronephrosis . No focal abnormality. Bowel / peritoneum / mesenteries: Visualized gastrointestinal tract is within normal limits. No free air, free fluid, fluid collections or areas of inflammation. Lymph node assessment: No pathologic adenopathy identified. Vessels: No significant atherosclerotic calcifications seen throughout a nonaneurysmal abdominal aorta and branches. Musculoskeletal / Body wall: No acute or aggressive osseous abnormality. IMPRESSION: 1. Stable appearance to the left adrenal gland with mild hyperemic changes and surrounding inflammatory changes. This most likely due to an acute/subacute insult. No acute hemorrhage or blood products is identified. No adrenal gland mass. Report Dictated By: Jean Paul Montoya at 04/07/2017 8:28 PM Report E-Signed By: Jean Paul Montoya at 04/07/2017 8:36 PM WSN:[id number] PATIENT NAME: CARLOS BENITEZ : [id number] MR: [id number] V: [id number] EXAM DATE: ORDERING PHYSICIAN: KIMBERLY ERIC TECHNOLOGIST: Aileen Oliver EXAMINATION: T WO-DIMENSIONAL ECHOCARDIOGRAPH REASON: ADRENAL INFARCT 2D Measurements (normal values in centimeters) LV end LV end RV end Vent. LV Post Aortic Left Percent Diastolic Systolic Diastolic Septum Wall Root Atrium Shortening (3.5-5.7) (0.9-2.6) (0.6-1.1) (0.6-1.1) (2.0-3.7) (1.9-4.0) (25-35%) 4.3 2.7 2.4 0.8 0.95 3.2 3.1 37% STROKE VOLUME: 57 ESTIMATED EJECTION FRACTION: 65% PARASTERNAL LONG AXIS: Overall left ventricular systolic function appears to be normal. No wall motion abnormalities are noted. No thrombi are noted but the left atrial appendage is not seen. The chamber sizes all appear to be normal. Color examination of the valves in this view was unremarkable. The aortic valve and mitral valve both appear to open normally. PARASTERNAL SHORT AXIS: Overall left ventricular function appears to be normal. No wall motion abnormalities are noted. The aortic valve is trileaflet in configuration and appears to open normally. Color examination of the valves is unremarkable. APICAL FOUR AND TWO CHAMBER: Normal left ventricular ejection fraction. There is a mild amount of tricuspid insufficiency noted. Tricuspid regurgitation V-max is measured at .072 m/sec. Estimated right atrial pressure is 3 mmHg. Aortic valve area and mitral valve area both measure within normal range at 4.3 and 4.5 cm2 respectively. The left atrial and right atrial volumes are measured within normal ranges. SUBCOSTAL VIEW: No pericardial effusion was noted. No atrial septal or ventricular septal defects were appreciated. Doppler examination of the mitral valve in diastole does reveal the A wave greater than the E wave. OVERALL IMPRESSION: 1. Normal left ventricular ejection fraction of 65% with a grade 1/4 decrease in diastolic function. 2. Normal chamber sizes. 3. Mild amount of tricuspid insufficiency with right ventricular systolic pressure within normal range at 13 mmHg. No other abnormalities were noted. 4. No thrombi were noted in any of the chambers but the left atrial appendage was not seen. Dictated by: Charu Skaggs M.D. on 04/10/2017 at 9:53 Transcribed by: ARTHUR on 04/10/2017 at 14:05 Approved by: Charu Skaggs M.D. on 04/10/2017 at 14:05 [facility] EKG PATIENT NAME: CARLOS BENITEZ : [id number] MR: [id number] V: [id number] EXAM DATE: ORDERING PHYSICIAN: SOPHIE HNUT TECHNOLOGIST: Test Reason : Blood Pressure : / mmHG Vent. Rate : 086 BPM Atrial Rate : 086 BPM P-R Int : 114 ms QRS Dur : 078 ms QT Int : 366 ms P-R-T Axes : 038 040 041 degrees QTc Int : 437 ms Sinus rhythm No acute appearing findings Baseline artifact No previous ECGs available Confirmed by KIMBERLY ERIC ([id number]) on 04/08/2017 6:01:58 AM Referred By: Confirmed By:KIMBERLY ERIC Condition: Improved Discharge: Home, Self Care Time Spent: > 30 min Discharge Instructions Home Meds Active Scripts Tamsulosin Hcl (TAMSULOSIN HCL) 0.4 Mg Cap.er.24h, 0.4 MG PO QDAY, #30 CAP 1 Refill Prov:KIMBERLY ERIC MD 04/10/17 Oxycodone Hcl (OXYCODONE HCL) 5 Mg Tablet, 5-10 MG PO Q4H Y for PAIN, #45 TAB 0 Refills Prov:KIMBERLY ERIC MD 04/10/17 Docusate Sodium (DOCUSATE SODIUM) 100 Mg Capsule, 100 MG PO BID, #100 CAPSULE 1 Refill Prov:KIMBERLY ERIC MD 04/10/17 Reported Medications Ibuprofen (IBUPROFEN) 200 Mg Tablet, 3 TAB PO Q6H, TAB 04/07/17 Baclofen (BACLOFEN) 10 Mg Tablet, 10 MG PO TID, #30 TAB 04/07/17 Valacyclovir Hcl (VALACYCLOVIR) 500 Mg Tablet, 500 MG PO 04/07/17 Alemtuzumab (Lemtrada) 12 Mg/1.2 Ml Vial 04/07/17 Discontinued Reported Medications Methylphenidate Hcl (Concerta) 18 Mg/Bottle Tab.osm.24, 18 MG PO, 0 Refills 01/25/11 Methylphenidate Hcl (Ritalin) 5 Mg Tab, 5 MG PO TID, 0 Refills 01/25/11 Follow up Referrals: Family Practice with Luis Dial Neurology with Carmen Cantu Md Oncology @ [facility] with Krishan Oliver Md Diet: Regular Activity: As Tolerated, No Exertion Special Instructions: Follow up with Dr. Oliver in 1-2 weeks. Follow up with Luis BLANDON in next 2-4 weeks. Follow up with Dr. Carmen Cantu in next 2-4 weeks. Return to ER if any problems. Copies to: LUIS DIAL; KRISHAN OLIVER MD Venous Thromboembolism Antithrombotics Is Pt On Any Antithrombotics?: No KIMBERLY ERIC MD Apr 10, 2017 14:56
[2017-04-10 15:44] VITALS: BP 121/85
--- NOTE | 2017-04-11 22:23 | CONSULTATION ---
EVENT DATE: April 10, 2017 CHIEF COMPLAINT/REASON FOR VISIT Mr. Benitez is a pleasant 41-year-old gentleman with a history of multiple sclerosis on Lemtrada who presents with an acute adrenal infarction versus hemorrhage. HISTORY OF PRESENT ILLNESS Mr. Benitez is a very pleasant 41-year-old gentleman with known MS He follows with Dr. Carmen Cantu in [facility]. He is currently on alemtuzumab or Lemtrada. He has been on this for some time and has had two rounds of treatment thus far. He states that he has tolerated this well overall and feels that it has been effective. He presented with abdominal pain and imaging studies showed an acute insult to the left adrenal gland with no clear etiology. He has a family history of thrombosis in the father's side with a paternal grandfather at young age who from a blood clot. He has never had a diagnosis of thrombophilia. There is concern that he developed a thrombus and then had hemorrhage. However, review of the imaging does just show hemorrhage. His platelet count has been normal and I have no concern for alemtuzumab-induced ITP. His PT and PTT are normal, reducing the risk of an alemtuzumab-induced coagulopathy such as a factor VIII inhibitor. Without exception the PTT would be prolonged. His thrombophilia workup is negative to date and the rest is ongoing. This may simply be an idiopathic adrenal hemorrhage and we will need to notify Dr. Cantu's team. He continues to have pain, but it is controlled with his current pain regimen. We do not have proof of a thrombosis, and workup for further thrombosis was negative. Therefore I do not think he needs any anticoagulation at this time. I would not recommend aspirin at this time as our current main issue is hemorrhage. If he has a significant thrombophilia such as lupus anticoagulant or hyperhomocysteinemia (homocysteine returns normal at 10), then I think it would be reasonable to make the diagnosis of a thrombosis of the adrenal gland. I answered all of his questions today. PAST MEDICAL HISTORY 1. Multiple sclerosis. 2. 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 SOCIAL HISTORY Patient is present in the hospital room by himself today. FAMILY HISTORY Remarkable for his paternal grandfather who from a blood clot at an early age. REVIEW OF SYSTEMS CONSTITUTIONAL: No fevers, chills, significant weight change. HEENT: No headache or vision changes. CARDIOVASCULAR: No chest pain, dyspnea on exertion or edema. RESPIRATORY: No shortness of breath, wheeze, cough. GASTROINTESTINAL: No nausea, vomiting, diarrhea or constipation. Positive abdominal pain. GENITOURINARY: No dysuria or hematuria. MUSCULOSKELETAL: No weakness or joint pain. NEUROLOGIC: Positive history of MS. Currently decently controlled with the alemtuzumab by his report. SKIN: No concerning rashes or lesions. PSYCHIATRIC: No anxiety or depression. HEMATOLOGIC: No bruising or bleeding history. The remainder of the 14-point review of systems is otherwise negative, except as noted above in the HPI. PHYSICAL EXAMINATION GENERAL: In stable condition, resting comfortably in the chair. HEENT: Normocephalic, atraumatic. CARDIOVASCULAR: Regular rate and rhythm. LUNGS: Clear to auscultation bilaterally. ABDOMEN: Soft, nontender. I do not worsen his pain with palpation. EXTREMITIES: No clubbing, cyanosis or edema. Remainder of physical exam otherwise unremarkable. IMPRESSION/PLAN Mr. Benitez is a pleasant 41-year-old gentleman with the following: Adrenal hemorrhage. I do share Dr. Zamora's concern given his family history that this was an infarct that then bled. However, this could be an idiopathic adrenal hemorrhage as well. It is not a known side effect of alemtuzumab, however, we do need to notify Dr. Cantu of this. No low platelets to suggest ITP. No anticoagulation at this time as hemorrhage is our main issue and we have no positive thrombophilia. I do not find any alemtuzumab-induced factor VIII inhibitor given the normal coagulation studies that were run stat today. We will see the patient in followup. I answered all of his many questions today. Billing: New inpatient consult level 4. MTDD
== END 2017-04-10 16:40 | disposition home or self-care (01) ==
LOC: ER 16:01 → INTOOBSV 21:50 → MED 21:50
PROVIDERS: ADMIT Internal Medicine; ATTEND Internal Medicine
DX: E27.49 Other adrenocortical insufficiency (principal); D72.829 Elevated white blood cell count, unspecified; G35 Multiple sclerosis; R10.12 Left upper quadrant pain
CPT/HCPCS: 36415; 74160; 74176; 81001; 81241; 81291; 82024; 82088; 82150; 82533; 83090; 83605; 83690; 84244; 84484; 85025; 85300; 85303; 85306; 85610; 85613; 85730; 86147; 87040; 93005; 93306; 96361; 96374; 96375; 96376; 99284; G0378; J0834; J1885; J2405; J3010; J7030; J7050; Q9967; 82040; 82247; 82310; 82374; 82435; 82565; 82947; 84075; 84132; 84155; 84295; 84450; 84460; 84520; C8929; Q9957

== ENCOUNTER 2017-04-11 01:59 | Emergency (ER) | payer OTHER ==
[~2017-04-11] VITALS: Ht 193 cm; Wt 68.0 kg
[~2017-04-11 01:59] MED LIST changes: +BACL-1 PO; +DOCU-202 PO; +IBUP-56 PO; +OXYC5TAB38 PO; +TAMS0.4C70 PO; +VALA500T63 PO; +[UNRECOGNIZED DRUG - CODE]
--- NOTE | 2017-04-11 02:02 | ER Report ---
History and Physical Time Seen By MD: 02:01 HPI/ROS CHIEF COMPLAINT: Abdominal pain, cramps HISTORY OF PRESENT ILLNESS: 41-year-old male with a history of MS with a recent hospital admission. Patient was discharged home on Percocet pain pills. He's not had a bowel movement in 4-5 days. He is complaining of crampy right abdominal pain radiating to his back. He's had no fever, chills or vomiting. He's been avoiding taking the pain pills because he thinks are concerning to his constipation. REVIEW OF SYSTEMS: Respiratory: No cough, no dyspnea. Cardiovascular: No chest pain, no palpitations. Gastrointestinal: As above Musculoskeletal: No back pain. Allergies: Coded Allergies: morphine (Verified Allergy, Mild, 04/11/17) Home Meds Active Scripts Tamsulosin Hcl (TAMSULOSIN HCL) 0.4 Mg Cap.er.24h, 0.4 MG PO QDAY, #30 CAP 1 Refill Prov:KIMBERLY ERIC MD 04/10/17 Oxycodone Hcl (OXYCODONE HCL) 5 Mg Tablet, 5-10 MG PO Q4H Y for PAIN, #45 TAB 0 Refills Prov:KIMBERLY ERIC MD 04/10/17 Docusate Sodium (DOCUSATE SODIUM) 100 Mg Capsule, 100 MG PO BID, #100 CAPSULE 1 Refill Prov:KIMBERLY ERIC MD 04/10/17 Reported Medications Baclofen (BACLOFEN) 10 Mg Tablet, 10 MG PO TID, #30 TAB 04/07/17 Valacyclovir Hcl (VALACYCLOVIR) 500 Mg Tablet, 500 MG PO 04/07/17 Discontinued Reported Medications Ibuprofen (IBUPROFEN) 200 Mg Tablet, 3 TAB PO Q6H, TAB 04/07/17 Alemtuzumab (Lemtrada) 12 Mg/1.2 Ml Vial 04/07/17 Methylphenidate Hcl (Concerta) 18 Mg/Bottle Tab.osm.24, 18 MG PO, 0 Refills 01/25/11 Methylphenidate Hcl (Ritalin) 5 Mg Tab, 5 MG PO TID, 0 Refills 01/25/11 Reviewed Nurses Notes: Yes Old Medical Records Reviewed: Yes Hx Smoking: No Exposure to Second Hand Smoke?: No Hx Substance Use Disorder: No Hx Alcohol Use: No Constitutional Vital Sign - Last 24 Hours 104/11/17 04/11/17 04/11/17 02:03 02:04 02:29 02:30 Temp 99.1 Pulse 73 77 Resp 19 B/P (MAP) 122/80 122/80 (94) 130/77 (94) Pulse Ox 96 95 O2 Delivery Room Air 04/11/17 03:00 B/P (MAP) 134/88 (103) Physical Exam General Appearance: The patient is alert, has no immediate need for airway protection and no current signs of toxicity. Mild distress, slightly pale appearing, skin warm and dry, vital signs stable, afebrile HEENT: Pupils equal and round no injection. Oropharynx without redness or exudate, mucous. Membranes are moist Respiratory: Chest is non tender, lungs are clear to auscultation. Cardiac: regular rate and rhythm Gastrointestinal: Abdomen is soft and non tender, no masses, bowel sounds normal. Musculoskeletal: Neck: Neck is supple and non tender. Extremities have full range of motion and are non tender. Skin: No rashes or lesions. DIFFERENTIAL DIAGNOSIS: After history and physical exam differential diagnosis was considered for abdominal pain including but not limited to appendicitis, cholecystitis, gastritis, constipation, bowel obstruction and urinary tract infection. Medical Decision Making EKG/Imaging Imaging X-ray: KUB was obtained. I viewed the images myself on the PACS system. My interpretation of the images is: Diffuse air throughout the large and small bowel. There is fecal stasis in the right colon and the rectal sigmoid area, no evidence of obstruction. The radiologist interpretation had no clinically significant variation from this interpretation. ED Course/Re-evaluation ED Course Patient was treated with tramadol orally. A KUB was ordered. There is obvious fecal stasis in the ascending and descending colon. There is no evidence of obstruction. Patient reports some improvement of his pain with tramadol. I'm reluctant to give him opiate pain relievers. He has Percocet at home. He is advised about plan including MiraLAX, clear liquid diet and magnesium citrate. He is advised to use his Percocet as needed for severe pain relief. Decision to Disposition Date: Apr 11, 2017 Decision to Disposition Time: 02:53 Depart Departure Latest Vital Signs Vital Signs Date Time Temp Pulse Resp B/P (MAP) Pulse Ox O2 Delivery O2 Flow Rate FiO2 04/11/17 03:00 134/88 (103) 04/11/17 02:29 77 95 04/11/17 02:03 99.1 19 Room Air Impression: Primary Impression: Abdominal pain Additional Impressions: Constipation Adrenal infarction Multiple sclerosis Condition: Improved Disposition: HOME OR SELF-CARE Referrals: DIONTE DIXON MD (PCP) Patient Instructions: Abdominal Pain (ED), Constipation (ED) Additional Instructions: Take MiraLAX one capful 2-3 times per day Follow clear liquid diet until bowels evacuate Give yourself fleets enema if no bowel movement in 6 hours Follow-up with primary care if unimproved in 2-3 days Problem Qualifiers Primary Impression: Abdominal pain Abdominal location: right upper quadrant Qualified Codes: R10.11 - Right upper quadrant pain Additional Impressions: Constipation Constipation type: unspecified constipation type Qualified Codes: K59.00 - Constipation, unspecified ISAIAH AMATO DO Apr 11, 2017 02:02
[2017-04-11] MEDS ORDERED: traMADol 50 MG TAB PO ONE (02:20)
[2017-04-11 03:00] VITALS: BP 134/88
--- NOTE | 2017-04-11 03:21 | RADIOLOGY IMAGING REPORT ---
[place] [facility] [place] Benitez : 1975 MR: [id number] V: [id number] EXAM DATE: ORDERING PHYSICIAN: ISAIAH AMATO TECHNOLOGIST: Location: [facility] Patient: Carlos Benitez : 1975 Visit/Account:[id number] Date of Sevice: 04/11/2017 Abdomen: Indication: Abdominal pain and constipation. Technique: Supine views of the abdomen were obtained. Comparison: None. Findings: There is a modest amount of stool in the ascending colon and descending colon. There are no signs of obstruction or focal dilatation. No suspicious calcifications or soft tissue abnormalities are identified. The skeletal structures are well mineralized and intact. IMPRESSION: No evidence of obstruction. Report Dictated By: Karthikeyan Bond MD at 04/11/2017 2:47 AM Report E-Signed By: Karthikeyan Bond MD at 04/11/2017 2:51 AM WSN:[id number]
== END 2017-04-11 03:25 | disposition home or self-care (01) ==
LOC: ER 02:21
DX: K59.00 Constipation, unspecified (principal); E27.49 Other adrenocortical insufficiency; G35 Multiple sclerosis
CPT/HCPCS: 74018; 99282